=== PATIENT | female | born 1980 | race Caucasian/White ===

== ENCOUNTER 2019-04-20 17:11 | Emergency (ER) | payer BC ==
[~2019-04-20] VITALS: Ht 170.2 cm; Wt 136.1 kg
[~2019-04-20 17:11] MED LIST: AMLO2.5T5 PO; HYDR-2145 PO; HYDR12.58 PO; LISI-338 PO; LOSA-73 PO
[2019-04-20 17:20] VITALS: BP 195/109
[2019-04-20] MEDS ORDERED: DEXAMETHASONE 4 MG TABLET PO STA (17:37)
[2019-04-20] MEDS ORDERED: ONDA4TAB12 PO (17:42)
--- NOTE | 2019-04-20 17:49 | PHYS DOC ---
Past Medical History Past Medical History: Hypertension Past Surgical History: Cholecystectomy, Other Additional Past Surgical Histo: CYST REMOVAL FROM CHEST Alcohol Use: Rarely Drug Use: None Adult General Chief Complaint Chief Complaint: COUGH HPI HPI Patient is a 39 year old female who presents with cough, sore throat, congestion, body aches, fever, diarrhea, loss of appetite, runny nose has been ongoing for days. She states that she is able to keep fluids down at home. She's been taking Robitussin and TheraFlu for symptom relief. Rates her pain as 6 out of 10 in severity and sharp. Review of Systems Review of Systems Constitutional: Reports fever or chills [] Eyes: Denies change in visual acuity, redness, or eye pain [] HENT: Reports runny nose, nasal congestion and sore throat [] Respiratory: Reports cough. Cardiovascular: No additional information not addressed in HPI [] GI: Reports loss of appetite, diarrhea. Denies abdominal pain, nausea, vomiting. : Denies dysuria or hematuria [] Musculoskeletal: Denies back pain or joint pain [] Integument: Denies rash or skin lesions [] Neurologic: Reports headache, denies focal weakness or sensory changes [] Endocrine: Denies polyuria or polydipsia [] Complete systems were reviewed and found to be within normal limits, except as documented in this note. Allergies Allergies Allergies Coded Allergies Type Severity Reaction Last Updated Verified No Known Drug Allergies 02/02/14 No Physical Exam Physical Exam Constitutional: Well developed, well nourished, no acute distress, non-toxic appearance. [] HENT: Normocephalic, atraumatic, bilateral external ears normal, bilateral tympanic membranes is pearly purdy, oropharynx moist, no oral exudates, nose turbinate inflamed. Eyes: PERRLA, EOMI, conjunctiva normal, watery discharge. Neck: Normal range of motion, no tenderness, supple, no stridor. [] Cardiovascular:Heart rate regular rhythm, no murmur [] Lungs & Thorax: Bilateral breath sounds clear to auscultation [] Skin: Warm, dry, no erythema, no rash. [] Neurologic: Alert and oriented X 3, normal motor function, normal sensory function, no focal deficits noted. [] Psychologic: Affect normal, judgement normal, mood normal. [] Current Patient Data Vital Signs Vital Signs Date Time Temp Pulse Resp B/P (MAP) Pulse Ox O2 Delivery O2 Flow Rate FiO2 04/20/19 17:20 100.6 113 16 195/109 (137) 96 Room Air 100.6 EKG EKG [] Radiology/Procedures Radiology/Procedures [] Course & Med Decision Making Course & Med Decision Making Pertinent Labs and Imaging studies reviewed. (See chart for details) Discussed with patient that she likely has the FLU. Discussed fever control, adding Zyrtec, and will give Decadron in ER for symptoms. Also encouraged patient to drink plenty of fluids. Patient is agreeable to this plan. Dragon Disclaimer Dragon Disclaimer This electronic medical record was generated, in whole or in part, using a voice recognition dictation system. Departure Departure Impression: Primary Impression: Acute viral syndrome Disposition: 01 HOME, SELF-CARE Condition: STABLE Referrals: GISSELLE WHELAN (PCP) Patient Instructions: Viral Syndrome Additional Instructions: Thank you for visiting [facility]. We appreciate you trusting us with your care. If any additional problems come up don't hesitate to return to visit us. Please follow up with your primary care provider so they can plan additional care if needed and know about the problem that you had. If symptoms worsen come back to the Emergency Department. Any concerning symptoms that start such as chest pain, shortness of air, weakness or numbness on one side of the body, running high fevers or any other concerning symptoms return to the ER. Please fill your medications at any pharmacy and follow the prescription instructions. Please drink plenty of fluids. If unable to keep fluids down please return to ER. Please get Tylenol and Ibuprofen over the counter. Give each medication every 6 hours as directed by the medication labels. In order to utilize the peak of the medications stagger the medications to where the child is getting one of the medications every 3 hours. For example if you give Ibuprofen at 3 PM, you then give Tylenol at 6 PM and Ibuprofen again at 9 PM, and then Tylenol at midnight. Please get Zyrtec over the counter and take per label instructions for runny nose. Scripts Ondansetron (ONDANSETRON ODT) 4 Mg Tab.rapdis 1 TAB PO PRN Q6-8HRS PRN for NAUSEA, #16 TAB Prov: MARLON WONG APRN 04/20/19 MARLON WONG APRN Apr 20, 2019 17:49
== END 2019-04-20 17:54 | disposition home or self-care (01) ==
LOC: ER 17:11
DX: B34.9 Viral infection, unspecified (principal); R50.9 Fever, unspecified; R19.7 Diarrhea, unspecified; R63.0 Anorexia; R09.89 Other specified symptoms and signs involving the circulatory and respiratory systems; I10 Essential (primary) hypertension; Z90.49 Acquired absence of other specified parts of digestive tract; Z98.890 Other specified postprocedural states
CPT/HCPCS: 99283; J8540